=== PATIENT | male | born 1965 ===

== ENCOUNTER 2017-12-28 05:37 | Day surgery (SDC) | payer BC ==
[2017-12-28] VITALS (8 sets, daily range): BP systolic 104–141; BP diastolic 58–78
[~2017-12-28] VITALS: Ht 172.7 cm; Wt 71.7 kg
[~2017-12-28 05:37] MED LIST: COLACE100 MG ORAL
[2017-12-28] MEDS ORDERED: IBUPROFEN600 MG ORAL (06:11)
[2017-12-28] MEDS ORDERED: Bupivacaine 0.25% Inj 30ml INJ ONE (06:42)
[2017-12-28] MEDS ORDERED: Dexamethasone 4mg/ml vial ONE (06:42)
[2017-12-28] MEDS ORDERED: Ropivacaine 5mg/ml Vial 30ml INJ ONE ×2 (06:43)
[2017-12-28] MEDS ORDERED: EPINEPHrine 1mg/1ml Amp ONE (06:43)
[2017-12-28] MEDS ORDERED: LR 1000ml ONE (07:00)
[2017-12-28] MEDS ORDERED: Midazolam 2mg/2ml Inj ONE (07:00)
[2017-12-28] MEDS ORDERED: Sterile Water Irrig 1000ml IRRIG ONE (07:00)
[2017-12-28] MEDS ORDERED: fentaNYL 100 mcg/2 mL IV ONE (07:00)
[2017-12-28] MEDS ORDERED: NS Irrig 1000ml ONE (07:00)
[2017-12-28] MEDS ORDERED: Propofol 200mg/20ml IV ONE (07:00)
--- NOTE | 2017-12-28 07:02 | Pre-Procedure Note/Attestation ---
Pre-Procedure Note/Attestation Complete Prior to Procedure Planned Procedure: not applicable Procedure Narrative: Exam under anesthesia, transanal excision of rectal lesion Indications for Procedure Pre-Operative Diagnosis: rectal lesion Attestation I attest that I discussed the nature of the procedure; its benefits; risks and complications; and alternatives (and the risks and benefits of such alternatives ), prior to the procedure, with the patient (or the patient's legal payroll representative). I attest that, if there was a reasonable possibility of needing a blood transfusion, the patient (or the patient's legal payroll representative) was given the [facility] standardized written summary, pursuant to the [place] Blood Safety Act ([place] Health and Safety Code # 1645, as amended). I attest that I re-evaluated the patient just prior to the surgery and that there has been no change in the patient's H&P, except as documented below: HSANICE BARRIOS Dec 28, 2017 07:02
--- NOTE | 2017-12-28 07:51 | Brief Operative Note ---
Immediate Post Operative Note Operative Note Pre-op Diagnosis: rectal lesion Procedure: Exam under anesthesia, transanal excision of rectal lesion Post-op Diagnosis: Rectal lesion Post-op Diagnosis: same as pre-op Findings: consistent w/pre-op dx studies Surgeon: Diamond Barrios MD Anesthesiologist: Dr. Pompa Anesthesia: moderate sedation Specimen: yes Complications: none Condition: stable Fluids: see anesthesia record Estimated Blood Loss: minimal Drains: none Implant(s) used?: No DIAMOND BARRIOS Dec 28, 2017 07:51
--- NOTE | 2017-12-28 07:54 | Anethesia Preoperative Eval ---
Anesthesia Pre-op PMH/ROS General Date of Evaluation: Dec 28, 2017 Time of Evaluation: 07:00 Anesthesiologist: eris ASA Score: ASA 1 Mallampati Score Class I : Soft palate, uvula, fauces, pillars visible Class II: Soft palate, uvula, fauces visible Class III: Soft palate, base of uvula visible Class IV: Only hard plate visible Mallampati Classification: Class I Anesthesia History: none Family History: no anesthesia problems Allergies: Coded Allergies: No Known Allergies (Unverified , 12/27/17) Anesthesia Pre-op Phys. Exam Physician Exam Last Vital Signs Date Time Temp Pulse Resp B/P (MAP) Pulse Ox O2 Delivery O2 Flow Rate FiO2 12/28/17 07:45 98.4 54 12 105/73 98 Simple Mask 6.0 98.4 Airway Exam Mallampati Score: Class I Willie Pompa MD Dec 28, 2017 07:54
--- NOTE | 2017-12-28 07:55 | Immediate Post-Op Evaluation ---
Immediate Post-Op Evalulation Immediate Post-Op Evalulation Procedure: trans anal excision of rectal lesion Date of Evaluation: Dec 28, 2017 Time of Evaluation: 08:00 Nausea: No Vomiting: No Given Within 1 Hr of Incision: Yes Willie Pompa MD Dec 28, 2017 07:55
[2017-12-28] MEDS ORDERED: fentaNYL 100 mcg/2 mL IV PRN (08:00)
[2017-12-28] MEDS ORDERED: Ketorolac 30mg Inj IV PRN (08:00)
--- NOTE | 2017-12-28 10:00 | Operative Note - Dictated ---
DATE OF OPERATION: 12/28/2017 PREOPERATIVE DIAGNOSIS: Rectal lesion. POSTOPERATIVE DIAGNOSIS: Rectal lesion. PROCEDURE: Exam under anesthesia, transanal excision of rectal lesion. SURGEON: Diamond Francisco M.D. ANESTHESIOLOGIST: Dr. Pompa. ANESTHESIA: Propofol sedation with local anesthetic. INDICATION FOR PROCEDURE: The patient is a 52-year-old male, who was sent to my office by his inspector cold working Dr. Byron Jenkins, for colorectal surgical evaluation of rectal lesions found on recent colonoscopy. The patient had a colonoscopy done by Dr. Jenkins, on November 2017, which showed some colon polyps. The patient also had a lesion at the rectal area, which was not biopsied secondary to hypervascularity. The patient could not tolerate the exam in the office since he was in extreme pain. In light of the patient's findings, it was determined at this time to proceed with exam under anesthesia with excision of the rectal lesion. DESCRIPTION OF PROCEDURE: Upon consent of the patient, the patient was brought to the operating room, placed in the prone terrell-knife position on the operating table. Once adequate sedation was established with propofol drip, the patient's buttocks were prepped and draped in usual surgical fashion. A 40 mL of 0.5% ropivacaine with epinephrine mixed with 6 mg of dexamethasone was used as a perianal and pudendal block. A Hill-Whiteside retractor was placed into the anal canal, there was noted to be circumferential moderate internal hemorrhoids. 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 This was excised along with the anal fissure scar and hemorrhoid and passed off the field as specimen. The lesion was excised in full-thickness and the mucosal defect was closed with a 3-0 Vicryl suture. The base of the fissure was excised underneath old scar and electrofulgurated. Since the wound defect was shallow right above the sphincteric muscle, there was no further sutures placed. The anal canal then irrigated and hemostasis was confirmed. Sterile dry dressing was used as outer dressing. Sponge, needle, and instrument counts were correct at the end of the case. The patient was awakened from anesthesia and brought to postanesthesia recovery in stable condition. ESTIMATED BLOOD LOSS: Less than 5 mL. DRAINS: None. SPECIMEN: Rectal lesion. COMPLICATIONS: None. Diamond Francisco M.D. DR: DIANE JOB#: [id number] CC: Diamond Francisco M.D.; Fax#: [phone] Juvencio Donald M.D. [facility] CENTERAnam[facility]
--- NOTE | 2017-12-28 10:32 | 48 Hour Post Anesthesia Eval ---
Post Anesthesia Evaluation Procedure: trans anal excision of rectal lesion Date of Evaluation: Dec 28, 2017 Time of Evaluation: 10:32 Nausea: No Vomiting: No Follow-up care needed: N/A Willie Pompa MD Dec 28, 2017 10:32
== END 2017-12-28 09:05 | disposition home or self-care (01) ==
LOC: SUR 05:37
DX: K64.5 Perianal venous thrombosis (principal)
CPT/HCPCS: 46257; J0171; J1100; J2250; J2704; J2795; J3010; J7120; 94003; 94150